=== PATIENT | male | born 1955 | race African-American/Black ===

== ENCOUNTER 2018-08-20 06:15 | Emergency (ER) | payer OTHER ==
[~2018-08-20] VITALS: Ht 170.2 cm; Wt 81.6 kg
[2018-08-20 06:24] VITALS: BP 175/120
--- NOTE | 2018-08-20 06:24 | NUR ---
TO BED # 11 AMBULATORY.
--- NOTE | 2018-08-20 06:44 | NUR ---
63/M CAME IN ED, C/O 06/23 LOWER ABD PAIN, X2 DAYS. PT STATED PAIN IS DUE TO HIS RADIATION THERAPY FOR PROSTATE CA. PT REPORTS N/V/D. LBM TODAY. LUNG SOUNDS CLEAR BL. BS ACTIVE X4, ABD FIRM ROUND TENDER TO LOWER QUADRANTS. AOX4, AMBULATORY, RR EVEN AND UNLABORED, MODERATELY IN DISTRESS OF PAIN. HX PROSTATE CA (RADIATION 5 DAYS/WEEK, "CHEMO SHOTS" EVERY 2 MO), HTN, ASTHMA, GERD
--- NOTE | 2018-08-20 07:14 | NUR ---
PT TAKEN TO CT SCAN BY CONRAD
--- NOTE | 2018-08-20 07:15 | NUR ---
IV STARTED ON L AC 20G, LABS DRAWN AND SENT TO LAB
--- NOTE | 2018-08-20 07:20 | NUR ---
Pt report given to WINDY JOSE. Transfer of care at this time.
[2018-08-20 07:23] LABS: BASOPHILS % (AUTO) 0.9 % (0.0-2.0); EOSINOPHILS # (AUTO) 0.2 K/uL (0-0.4); EOSINOPHILS % (AUTO) 6.9 % (0.0-4.0); HEMATOCRIT 38.2 % (36-52); HEMOGLOBIN 12.7 g/dL (12.0-18.0); LYMPHOCYTES # (AUTO) 0.9 K/uL (2.0-11.5); LYMPHOCYTES % (AUTO) 25.6 % (20.5-51.1); MEAN CORPUSCULAR HEMOGLOBIN 30 pg (27-31); MEAN CORPUSCULAR HGB CONC 33 g/dL (33-37); MEAN CORPUSCULAR VOLUME 89.3 fL (80-94); MONOCYTES # (AUTO) 0.5 K/uL (0.8-1.0); MONOCYTES % (AUTO) 14.9 % (1.7-9.3); NEUTROPHILS # (AUTO) 1.8 K/uL (1.8-7.7); NEUTROPHILS % (AUTO) 51.7 % (42.2-75.2); PLATELET COUNT (AUTO) 257 K/uL (140-450); RED BLOOD CELL COUNT(AUTO) 4.28 MIL/uL (4.20-6.10); RED CELL DISTRIBUTION WIDTH 13.6 % (11.6-13.7); WHITE BLOOD COUNT (AUTO) 3.5 K/uL (4.8-10.8)
[2018-08-20 07:24] LABS: APPEARANCE,URINE CLEAR (CLEAR); COLOR,URINE YELLOW (YELLOW)
[2018-08-20 07:25] LABS: BILIRUBIN,URINE NEGATIVE (NEGATIVE); BLOOD, URINE 3+ (NEGATIVE); LEUKOCYTE ESTERASE ,URINE NEGATIVE (NEGATIVE); NITRITE, URINE NEGATIVE (NEGATIVE); PH,URINE 6.5 (5.0-9.0); UGLUCOSE NEGATIVE (NEGATIVE)
[2018-08-20] MEDS ORDERED: NACL 0.9% 1,000 ML IV ONE (07:35)
[2018-08-20] MEDS ORDERED: MORPHINE SULFATE 4 MG/ML SYR IVP ONE ×2 (07:35→08:15)
[2018-08-20] MEDS ORDERED: ONDANSETRON 4 MG/2 ML VIAL IVP ONE (07:35)
[2018-08-20 07:36] LABS: ANION GAP 11.4 (8-16); CREATININE 1.1 mg/dL (0.7-1.3); POTASSIUM 3.4 mmol/L (3.5-5.1)
--- NOTE | 2018-08-20 07:39 | NUR ---
PATIENT AMBULATED TO BATHROOM. DAUGHTER AT BEDSIDE. SPOKE WITH HER REGARDING PAIN MANAGEMENT.
[2018-08-20 07:42] LABS: TOTAL BILIRUBIN 0.5 mg/dL (0.0-1.0)
[2018-08-20 07:43] LABS: RBC,URINE 11-20 (MOD) /HPF (0-5); WBC,URINE 0-5 (RARE) /HPF (0-5)
--- NOTE | 2018-08-20 08:00 | NUR ---
PATIENT STATES NO RELIEF AFTER MEDICATIONS GIVEN ORDERED. PATIENT RESTLESS AND CRYING OUTIN PAIN. DR GUEVARA MADE AWARE. STATED HE WOULD SEE PATIENT.
[2018-08-20] MEDS ORDERED: PROMETHAZINE 25 MG/ML VIAL IVP ONE (08:15)
--- NOTE | 2018-08-20 08:52 | NUR ---
SPOKE WITH PATIENTS MOTHER REGARDING A RIDE FOR THE PATIENT. SHE STATED SHE WOULD LEAVE NOW TO COME PICK HIM UP.
--- NOTE | 2018-08-20 08:53 | NUR ---
EDUCATION PROVIDED ON CATHETER CARE AND USE OF THE LEG BAD AND NIGHT BAG. PATIENT STATED UNDERSTANDING.
--- NOTE | 2018-08-20 09:05 | NUR ---
PATIENT AND PATIENT'S MOTHER EDUCATED ON PROPER USE OF LEG BAG AND NIGHT BAG. BOTH STATED UNDERSTANDING. PATIENT RETURNED DEMONSTRATION.
--- NOTE | 2018-08-20 09:11 | NUR ---
Patient discharged with v/s stable. Written and verbal after care instructions given and explained. Patient alert, oriented and verbalized understanding of instructions. Ambulatory with steady gait. All questions addressed prior to discharge. ID band removed. Patient advised to follow up with PMD. Rx of NORCO, PHENERGAN, COLACE given. Patient educated on indication of medication including possible reaction and side effects. Opportunity to ask questions provided and answered.
[2018-08-20 09:13] VITALS: BP 135/87
== END 2018-08-20 09:11 | disposition home or self-care (01) ==
LOC: MED 06:15
DX: R10.32 Left lower quadrant pain (principal); K59.00 Constipation, unspecified; R33.9 Retention of urine, unspecified; R11.2 Nausea with vomiting, unspecified; K21.9 Gastro-esophageal reflux disease without esophagitis; I10 Essential (primary) hypertension; J45.909 Unspecified asthma, uncomplicated; Z88.0 Allergy status to penicillin; Z85.46 Personal history of malignant neoplasm of prostate
CPT/HCPCS: 36415; 51702; 74176; 80053; 81001; 83690; 85025; 96361; 96374; 96375; 96376; 99285; J2270; J2405; J2550; J7030

== ENCOUNTER 2018-08-21 19:52 | Emergency (ER) | payer OTHER ==
[~2018-08-21] VITALS: Ht 170.2 cm; Wt 81.6 kg
[2018-08-21 19:56] VITALS: BP 156/98
--- NOTE | 2018-08-21 20:00 | NUR ---
TO LOBBY A/W BED, AMBULATORY, ERMGuillermo NOTED
--- NOTE | 2018-08-21 21:00 | NUR ---
Reassessed. No new complaints or changes.
--- NOTE | 2018-08-21 21:30 | NUR ---
Patient ambulated to bed 4. RN evaluating patient at bedside.
--- NOTE | 2018-08-21 21:37 | NUR ---
PT PRESENTS TO ED WITH C/O PAIN IN PENIS S/P CATHETER INSERTION X 1 DAY. PT REPORTS PAIN UPON URINATION. HX OF PROSTATE CANCER. PT PLACED IN BED, PENDING MD MELÉNDEZ. Addendum: 08/21/18 at 2140 by MEDRI PT PRESENTS TO ED WITH C/O PAIN IN PENIS S/P CATHETER INSERTION X 1 DAY. CATHETER PRESENT UPON ARRIVAL WITH LEG BEG. PT REPORTS PAIN UPON URINATION. HX OF PROSTATE CANCER. PT PLACED IN BED, PENDING MD MELÉNDEZ.
--- NOTE | 2018-08-21 21:49 | NUR ---
150ML URINE EMPTIED OUT OF CATHETER BAG. SENT TO LAB.
--- NOTE | 2018-08-21 22:37 | NUR ---
Dr. Johnston evaluating patient at bedside.
[2018-08-21] MEDS ORDERED: LIDOCAINE JELLY 2% 30 ML TUBE TP ONE (22:45)
--- NOTE | 2018-08-21 22:56 | NUR ---
Dr. Johnston re-evaluating patient at bedside.
--- NOTE | 2018-08-21 23:00 | NUR ---
GRIDER CATH REMOVED PER ER MD MCMILLAN ORDER. PT TOLERATED PROCEDURE WELL.
--- NOTE | 2018-08-21 23:58 | NUR ---
PT URINATED 100ML CLEAR YELLOW URINE.
[2018-08-22 00:03] VITALS: BP 149/99
--- NOTE | 2018-08-22 00:07 | NUR ---
Patient discharged with v/s stable. Written and verbal after care instructions given and explained. Patient alert, oriented and verbalized understanding of instructions. Ambulatory with steady gait. All questions addressed prior to discharge. ID band removed. Patient advised to follow up with PMD. Rx of PYRIDIUM given. Patient educated on indication of medication including possible reaction and side effects. Opportunity to ask questions provided and answered.
== END 2018-08-22 00:07 | disposition home or self-care (01) ==
LOC: MED 19:52
DX: T83.098A Other mechanical complication of other urinary catheter, initial encounter (principal); C61 Malignant neoplasm of prostate; J45.909 Unspecified asthma, uncomplicated; K21.9 Gastro-esophageal reflux disease without esophagitis; I10 Essential (primary) hypertension; Z92.21 Personal history of antineoplastic chemotherapy; Z92.3 Personal history of irradiation; Z88.0 Allergy status to penicillin
CPT/HCPCS: 81002; 99284

== ENCOUNTER 2018-09-07 04:43 | Emergency (ER) | payer OTHER ==
[~2018-09-07] VITALS: Ht 170.2 cm; Wt 81.6 kg
[2018-09-07 04:47] VITALS: BP 169/134
--- NOTE | 2018-09-07 04:56 | NUR ---
ER MD DR VELASCO AT BEDSIDE
[2018-09-07] MEDS ORDERED: ONDANSETRON 4 MG/2 ML VIAL IVP ONE (05:00)
[2018-09-07] MEDS ORDERED: NACL 0.9% 1,000 ML IV ONE (05:00)
[2018-09-07] MEDS ORDERED: MORPHINE SULFATE 4 MG/ML SYR IVP ONE ×3 (05:00→07:30)
[2018-09-07] MEDS ORDERED: MORPHINE SULFATE 2 MG/ML SYR ONE (05:10)
--- NOTE | 2018-09-07 05:11 | NUR ---
BLOOD SENT TO LAB, PT SENT TO CT VIA BED WITH TECH AAOX4.
--- NOTE | 2018-09-07 05:16 | NUR ---
BIB SELF FOR ABD PAIN, N/V. PT HAS FACIAL GRIMACING, PT IS SITTING ON SIDE OF BED HOLDING STOMACH, PT STATES HE HAS HAD SEVERE LOWER ABD PAIN STARTING FOR 1 WEEK AND WORSENING TODAY. PT IS NAUSEOUS , NO VOMITING NOTED UPON ARRIVAL TO ER. PT HAS ACTIVE PROSTATE CANCER THAT HE IS RECEIVING CHEMO FOR 5X WEEK PER PT. ABS IS ROUND, SOFT, TENDER TO LOWER QUADRANTS, ACTIVE BS X4. RR LABORED, SHALLOW, BL BS CLEAR THROUGOUT.
--- NOTE | 2018-09-07 05:29 | NUR ---
PT BACK FROM CT
[2018-09-07 05:31] LABS: BASOPHILS % (AUTO) 0.4 % (0.0-2.0); EOSINOPHILS # (AUTO) 0.3 K/uL (0-0.4); EOSINOPHILS % (AUTO) 5.2 % (0.0-4.0); HEMATOCRIT 41.7 % (36-52); HEMOGLOBIN 13.9 g/dL (12.0-18.0); LYMPHOCYTES # (AUTO) 1.3 K/uL (2.0-11.5); LYMPHOCYTES % (AUTO) 24.3 % (20.5-51.1); MEAN CORPUSCULAR HEMOGLOBIN 30 pg (27-31); MEAN CORPUSCULAR HGB CONC 33 g/dL (33-37); MEAN CORPUSCULAR VOLUME 89.1 fL (80-94); MONOCYTES # (AUTO) 0.8 K/uL (0.8-1.0); MONOCYTES % (AUTO) 15.2 % (1.7-9.3); NEUTROPHILS # (AUTO) 2.9 K/uL (1.8-7.7); NEUTROPHILS % (AUTO) 54.9 % (42.2-75.2); PLATELET COUNT (AUTO) 264 K/uL (140-450); RED BLOOD CELL COUNT(AUTO) 4.68 MIL/uL (4.20-6.10); RED CELL DISTRIBUTION WIDTH 13.8 % (11.6-13.7); WHITE BLOOD COUNT (AUTO) 5.3 K/uL (4.8-10.8)
--- NOTE | 2018-09-07 05:40 | NUR ---
EKG PERFORMED AT BEDSIDE. PT COVERED IN GOWN DURING PROCEDURE
[2018-09-07] MEDS ORDERED: METOCLOPRAMIDE 10 MG/2 ML INJ VIAL IVP ONE (05:45)
--- NOTE | 2018-09-07 05:45 | NUR ---
PT LAYING IN BED, IN DISTRESS, FACIAL GRIMACING, PT CONTINUES TO HAVE ABD PAIN, ER MD MADE AWARE.
[2018-09-07 05:46] LABS: ANION GAP 14.8 (8-16); CARBON DIOXIDE 23.9 mmol/L (21-32); CREATININE 1.4 mg/dL (0.7-1.3); POTASSIUM 3.7 mmol/L (3.5-5.1)
--- NOTE | 2018-09-07 06:00 | NUR ---
PT LAYING IN BED, NO RESPIRATORY DISTRESS NOTED AT THIS TIME, RR EVEN AND UNLABORED
[2018-09-07 06:09] LABS: ALBUMIN 4.3 g/dL (3.4-5.0); TOTAL BILIRUBIN 0.5 mg/dL (0.0-1.0)
[2018-09-07] MEDS ORDERED: MORPHINE SULFATE 4 MG/ML SYR ONE ×2 (06:10→07:42)
--- NOTE | 2018-09-07 06:12 | NUR ---
PT LAYING IN BED, COMFORT NEEDS MET AT THIS TIME, PT RESTING , AROUSABLE TO NAME.
[2018-09-07] MEDS ORDERED: cloNIDine 0.1 MG TAB PO ONE ×2 (06:25→07:05)
[2018-09-07 06:52] LABS: BARBITURATE, URINE NEG. ng/ml (NEG <=200); BENZODIAZEPINE, URINE NEG. ng/mL (NEG <=200); CANNABINOID, URINE NEG. ng/mL (NEG <=50); COCAINE, URINE NEG. ng/mL (NEG <=300); OPIATE, URINE POS. ng/mL (NEG <=2000); PHENCYCLIDINE SCREEN,URINE NEG. ng/mL (NEG <=25)
[2018-09-07 06:57] LABS: BILIRUBIN,URINE NEGATIVE (NEGATIVE); BLOOD, URINE LARGE (NEGATIVE); COLOR,URINE YELLOW (YELLOW); LEUKOCYTE ESTERASE ,URINE NEGATIVE (NEGATIVE); NITRITE, URINE NEGATIVE (NEGATIVE); UGLUCOSE NEGATIVE (NEGATIVE)
[2018-09-07 06:58] LABS: APPEARANCE,URINE SLIGHTLY HAZY (CLEAR)
[2018-09-07 07:03] LABS: RBC,URINE 3-10 (FEW) /HPF (0-5); WBC,URINE 0-5 (RARE) /HPF (0-5)
[2018-09-07] MEDS ORDERED: hydrALAZINE 20 MG/ML VIAL IVP ONE (07:05)
[2018-09-07] MEDS ORDERED: hydrALAZINE 20 MG/ML VIAL IM ONE (07:05)
--- NOTE | 2018-09-07 07:05 | NUR ---
B/P 222/153, ER MADE AWARE, WILL CONTINUE W/ ORDERS
--- NOTE | 2018-09-07 07:16 | NUR ---
REPORT GIVEN TO WINDY STEWARD.
--- NOTE | 2018-09-07 08:16 | NUR ---
sodium chloride 1000ml iv end time 0816am 09/07/18
[2018-09-07 08:17] VITALS: BP 178/119
--- NOTE | 2018-09-07 08:17 | NUR ---
Patient discharged with v/s stable. Written and verbal after care instructions given and explained. Patient alert, oriented and verbalized understanding of instructions. Wheel Chair Assisted with to home. All questions addressed prior to discharge. ID band removed. Patient advised to follow up with PMD. Rx of YESSICA KENYON ANSGuillermo MOTRIN given. Patient educated on indication of medication including possible reaction and side effects. Opportunity to ask questions provided and answered.
== END 2018-09-07 08:17 | disposition home or self-care (01) ==
LOC: MED 04:43
DX: N17.9 Acute kidney failure, unspecified (principal); K56.7 Ileus, unspecified; E86.0 Dehydration; J45.909 Unspecified asthma, uncomplicated; K21.9 Gastro-esophageal reflux disease without esophagitis; I10 Essential (primary) hypertension; Z88.0 Allergy status to penicillin; Z85.46 Personal history of malignant neoplasm of prostate
CPT/HCPCS: 36415; 71045; 74176; 80053; 80305; 81001; 83605; 83880; 84484; 85025; 87040; 87086; 93005; 96361; 96374; 96375; 96376; 99284; J0360; J2270; J2405; J2765; J7030; Q0092

== ENCOUNTER 2018-09-09 07:00 | Inpatient (IN) | payer OTHER ==
[~2018-09-09] VITALS: Ht 167.6 cm; Wt 81.6 kg
[2018-09-09 07:05] VITALS: BP 206/145
[2018-09-09] MEDS ORDERED: NACL 0.9% 1,000 ML IV SCH (07:36)
[2018-09-09] MEDS ORDERED: DICYCLOMINE 20 MG/2 ML VIAL IM ONE (07:40)
[2018-09-09] MEDS ORDERED: PANTOPRAZOLE 40 MG INJ VIAL IVP ONE (07:40)
[2018-09-09] MEDS ORDERED: ONDANSETRON 4 MG/2 ML VIAL IVP ONE (07:40)
[2018-09-09 08:13] LABS: BASOPHILS % (AUTO) 0.3 % (0.0-2.0); EOSINOPHILS # (AUTO) 0.2 K/uL (0-0.4); EOSINOPHILS % (AUTO) 4.9 % (0.0-4.0); HEMATOCRIT 39.1 % (36-52); HEMOGLOBIN 13.3 g/dL (12.0-18.0); LYMPHOCYTES # (AUTO) 0.9 K/uL (2.0-11.5); LYMPHOCYTES % (AUTO) 20.6 % (20.5-51.1); MEAN CORPUSCULAR HEMOGLOBIN 30 pg (27-31); MEAN CORPUSCULAR HGB CONC 34 g/dL (33-37); MEAN CORPUSCULAR VOLUME 88.7 fL (80-94); MONOCYTES # (AUTO) 0.6 K/uL (0.8-1.0); MONOCYTES % (AUTO) 13.9 % (1.7-9.3); NEUTROPHILS # (AUTO) 2.5 K/uL (1.8-7.7); NEUTROPHILS % (AUTO) 60.3 % (42.2-75.2); PLATELET COUNT (AUTO) 258 K/uL (140-450); RED BLOOD CELL COUNT(AUTO) 4.41 MIL/uL (4.20-6.10); RED CELL DISTRIBUTION WIDTH 13.6 % (11.6-13.7); WHITE BLOOD COUNT (AUTO) 4.1 K/uL (4.8-10.8)
[2018-09-09 08:35] LABS: ANION GAP 11.8 (8-16); CARBON DIOXIDE 26.7 mmol/L (21-32); CREATININE 1.3 mg/dL (0.7-1.3); POTASSIUM 3.5 mmol/L (3.5-5.1); TOTAL BILIRUBIN 0.5 mg/dL (0.0-1.0)
[2018-09-09] MEDS ORDERED: MORPHINE SULFATE 2 MG/ML SYR IVP ONE (08:55)
[2018-09-09] MEDS ORDERED: METOCLOPRAMIDE 10 MG/2 ML INJ VIAL IVP ONE (08:55)
[2018-09-09] MEDS ORDERED: TAMS0.4C96 PO (09:06)
[2018-09-09] MEDS ORDERED: GABA300C PO (09:06)
[2018-09-09] MEDS ORDERED: CLON0.1T42 PO (09:06)
[2018-09-09] MEDS ORDERED: METR500T1 PO (09:06)
[2018-09-09] MEDS ORDERED: IMI25 PO (09:06)
[2018-09-09] MEDS ORDERED: IBUP-2213 PO (09:06)
[2018-09-09] MEDS ORDERED: LORA10TA19 PO (09:06)
[2018-09-09] MEDS ORDERED: TRAM50TA1 PO (09:06)
[2018-09-09] MEDS ORDERED: OMEP20TC12 PO (09:06)
[2018-09-09] MEDS ORDERED: CIPR250T6 PO (09:06)
[2018-09-09] MEDS ORDERED: SIMV40TA1 PO (09:06)
[2018-09-09] MEDS ORDERED: CARV25TA PO (09:06)
[2018-09-09] MEDS ORDERED: ALBU0.0912 IH (09:06)
[2018-09-09] MEDS ORDERED: BENA40TA PO (09:06)
[2018-09-09 09:12] LABS: APPEARANCE,URINE CLEAR (CLEAR); BILIRUBIN,URINE NEGATIVE (NEGATIVE); BLOOD, URINE LARGE (NEGATIVE); COLOR,URINE YELLOW (YELLOW); LEUKOCYTE ESTERASE ,URINE NEGATIVE (NEGATIVE); NITRITE, URINE NEGATIVE (NEGATIVE); PH,URINE 5.5 (5.0-9.0); UGLUCOSE NEGATIVE (NEGATIVE)
[2018-09-09 09:21] LABS: RBC,URINE 11-20 (MOD) /HPF (0-5); WBC,URINE 0-5 (RARE) /HPF (0-5)
[2018-09-09] MEDS ORDERED: ENALAPRILAT 2.5 MG/2 ML VIAL IVP ONE (09:30)
[2018-09-09] MEDS ORDERED: DEXT 5% / NACL 0.45% 1,000 ML IV SCH (09:34)
[2018-09-09] MEDS ORDERED: MORPHINE SULFATE 4 MG/ML SYR IVP PRN (09:35)
[2018-09-09] MEDS ORDERED: ENALAPRILAT 2.5 MG/2 ML VIAL IVP PRN (09:35)
[2018-09-09] MEDS ORDERED: MORPHINE SULFATE 2 MG/ML SYR IVP PRN (09:35)
[2018-09-09] MEDS ORDERED: ALBUTEROL 0.083% 2.5 MG/3 ML NEBU IH PRN (09:35)
[2018-09-09] MEDS ORDERED: ONDANSETRON 4 MG/2 ML VIAL IVP PRN (09:35)
[2018-09-09] MEDS ORDERED: ACETAMINOPHEN 325 MG TAB PO PRN (09:35)
[2018-09-09] MEDS ORDERED: MORPHINE SULFATE 4 MG/ML SYR IVP ONE (09:45)
[2018-09-09 10:05] VITALS: BP 195/116
[2018-09-09] MEDS: LORazepam 2 MG/ML VIAL IVP PRN ×2 (10:56→17:09)
[2018-09-09] MEDS ORDERED: HYDROcodone/APAP 5/325 MG 1 TAB TAB PO PRN (13:50)
[2018-09-09] MEDS ORDERED: cloNIDine 0.1 MG TAB PO ONE (13:50)
[2018-09-09] MEDS ORDERED: cloNIDine 0.1 MG TAB PO PRN (13:55)
[2018-09-09 16:00] VITALS: BP 145/94
[2018-09-09 20:00] VITALS: BP 148/97
[2018-09-09] MEDS ORDERED: CARVEDILOL 12.5 MG TAB PO SCH (21:00)
[2018-09-10] MEDS ORDERED: TAMSULOSIN 0.4 MG CAP PO SCH (08:30)
[2018-09-10] MEDS ORDERED: ENOXAPARIN 30 MG/0.3 ML SYR SUBQ SCH (09:00)
[2018-09-10] MEDS ORDERED: PANTOPRAZOLE 40 MG INJ VIAL IVP SCH (09:00)
[2018-09-10] MEDS ORDERED: BENAZEPRIL 20 MG TAB PO SCH (09:00)
[2018-09-16] MEDS ORDERED: cloNIDine-TTS1 0.1 MG/24 HR 1 EA PATCH TD SCH (09:00)
== END 2018-09-09 21:05 | disposition left against medical advice (07) | DRG 247 ==
LOC: MED 07:00 → MTU 09:39
PROVIDERS: ADMIT Internal Medicine; ATTEND Internal Medicine
DX: K56.7 Ileus, unspecified (principal); C61 Malignant neoplasm of prostate; K52.9 Noninfective gastroenteritis and colitis, unspecified; I10 Essential (primary) hypertension; K21.9 Gastro-esophageal reflux disease without esophagitis; J45.909 Unspecified asthma, uncomplicated; Z53.21 Procedure and treatment not carried out due to patient leaving prior to being seen by health care provider; Z88.0 Allergy status to penicillin; Z79.1 Long term (current) use of non-steroidal anti-inflammatories (NSAID); Z79.2 Long term (current) use of antibiotics; Z79.51 Long term (current) use of inhaled steroids; Z79.899 Other long term (current) drug therapy
CPT/HCPCS: 36415; 74021; 80053; 81001; 83690; 85025; 87081; 94640; C9113; J0500; J2060; J2270; J2405; J2765; J3490; J7613; Q0092

== ENCOUNTER 2019-05-06 04:50 | Observation (INO) | payer OTHER ==
[~2019-05-06] VITALS: Ht 167.6 cm; Wt 79.4 kg
[~2019-05-06 04:50] MED LIST: ALBU0.0912 IH; BENA40TA PO; CARV25TA PO; CIPR250T6 PO; CLON0.1T42 PO; GABA300C PO; IBUP-2213 PO; IMI25 PO; LORA10TA19 PO; METR500T1 PO; OMEP20TC12 PO; SIMV40TA1 PO; TAMS0.4C96 PO; TRAM50TA1 PO
[2019-05-06 04:53] VITALS: BP 145/89
--- NOTE | 2019-05-06 04:57 | NUR ---
PT TAKEN TO ER BED 11
--- NOTE | 2019-05-06 05:02 | NUR ---
PT CAME TO ER C/O OF ABDOMINAL PAIN UNDER NAVAL SINCE LAST NIGHT. PAIN LEVEL 9/10 SHARP, CONSISTENT PAIN. PT HAS N/V/D. ABDOMEN IS DISTENDED, ROUND, AND TENDER TO TOUCH. BOWEL SOUNDS ACTIVE X 4 QUADRANTS. PT STATES HE DRANK 1/2 BEER TODAY. MED HX: ASTHMA. SAFETY MEASURES IN PLACE, BEDRAILS UP X2, BED IN LOWEST POSITION. ERMD AT BEDSIDE.
--- NOTE | 2019-05-06 05:04 | NUR ---
Dr. Hernandez examining patient.
[2019-05-06] MEDS ORDERED: NACL 0.9% 500 ML IV ONE (05:05)
[2019-05-06] MEDS ORDERED: KETOROLAC 30 MG/ML VIAL IVP ONE (05:05)
[2019-05-06] MEDS ORDERED: ONDANSETRON 4 MG/2 ML VIAL IVP ONE (05:05)
--- NOTE | 2019-05-06 05:35 | NUR ---
PT STILL VOMITING. ERMD NOTIFIED.
--- NOTE | 2019-05-06 05:52 | NUR ---
PT TAKEN TO CT
[2019-05-06 05:55] LABS: BASOPHILS # (AUTO) 0.1 K/uL (0.00-0.22); EOSINOPHILS # (AUTO) 0.1 K/uL (0-0.4); EOSINOPHILS % (AUTO) 1.6 % (0.0-4.0); HEMATOCRIT 37.8 % (36-52); HEMOGLOBIN 12.6 g/dL (12.0-18.0); LYMPHOCYTES # (AUTO) 1.1 K/uL (2.0-11.5); LYMPHOCYTES % (AUTO) 20.6 % (20.5-51.1); MEAN CORPUSCULAR HEMOGLOBIN 30 pg (27-31); MEAN CORPUSCULAR HGB CONC 33 g/dL (33-37); MEAN CORPUSCULAR VOLUME 90.9 fL (80-94); MONOCYTES # (AUTO) 0.5 K/uL (0.8-1.0); MONOCYTES % (AUTO) 9.2 % (1.7-9.3); NEUTROPHILS # (AUTO) 3.5 K/uL (1.8-7.7); NEUTROPHILS % (AUTO) 67.6 % (42.2-75.2); PLATELET COUNT (AUTO) 215 K/uL (140-450); RED BLOOD CELL COUNT(AUTO) 4.16 MIL/uL (4.20-6.10); RED CELL DISTRIBUTION WIDTH 13.9 % (11.6-13.7); WHITE BLOOD COUNT (AUTO) 5.2 K/uL (4.8-10.8)
--- NOTE | 2019-05-06 06:05 | NUR ---
PT RETURN FROM CT
[2019-05-06 06:10] LABS: ANION GAP 9.8 (8-16); CARBON DIOXIDE 30.9 mmol/L (21-32); CREATININE 1.6 mg/dL (0.7-1.3); POTASSIUM 3.7 mmol/L (3.5-5.1)
[2019-05-06 06:13] LABS: ACETAMINOPHEN < 0.5 ug/ml (10-30); SALICYLATE < 2.8 mg/dL (2.8-20.0)
[2019-05-06 06:26] LABS: ALBUMIN 3.9 g/dL (3.4-5.0); TOTAL BILIRUBIN 0.4 mg/dL (0.0-1.0)
--- NOTE | 2019-05-06 06:28 | NUR ---
PT RESTING IN BED WITH EYES OPEN. COMFORT NEEDS MET AT THIS TIME. WILL CONTINUE TO MONITOR.
[2019-05-06] MEDS ORDERED: MORPHINE SULFATE 2 MG/ML SYR IVP ONE (06:45)
[2019-05-06 06:56] LABS: BARBITURATE, URINE NEG. ng/ml (NEG <=200); BENZODIAZEPINE, URINE NEG. ng/mL (NEG <=200); CANNABINOID, URINE NEG. ng/mL (NEG <=50); COCAINE, URINE POS. ng/mL (NEG <=300); OPIATE, URINE NEG. ng/mL (NEG <=2000); PHENCYCLIDINE SCREEN,URINE NEG. ng/mL (NEG <=25)
[2019-05-06] MEDS ORDERED: cloNIDine 0.1 MG TAB PO ONE (07:00)
--- NOTE | 2019-05-06 07:19 | NUR ---
Konrad horne in [facility] - 05/06/19 at 0719 by ROB GAVE REPORT TO WINDY PERALES
--- NOTE | 2019-05-06 07:20 | NUR ---
RECEIVED REPORT FROM WINDY MAYES
--- NOTE | 2019-05-06 07:20 | NUR ---
GAVE REPORT TO WINDY PERALES
--- NOTE | 2019-05-06 07:39 | NUR ---
PT BP IS 234/138 AT THIS TIME. CLONIDINE 0.1MG GIVEN 0704 AM. WILL REASSESS IN 20 MIN.
--- NOTE | 2019-05-06 07:42 | NUR ---
Pt is anxious and is unable to remain still. Pt states it is because he is still in pain. Dr. Hay aware and will order medication for pain relief.
--- NOTE | 2019-05-06 07:52 | NUR ---
BP STILL 231/136, DR. ROWE AWARE.
[2019-05-06] MEDS ORDERED: hydrALAZINE 20 MG/ML VIAL IVP ONE (08:00)
[2019-05-06] MEDS ORDERED: ENALAPRILAT 2.5 MG/2 ML VIAL IVP ONE (08:00)
[2019-05-06] MEDS ORDERED: MORPHINE SULFATE 4 MG/ML SYR IVP ONE (08:20)
[2019-05-06] MEDS ORDERED: cloNIDine 0.1 MG TAB PO PRN (08:40)
[2019-05-06] MEDS ORDERED: HYDROcodone/APAP 5/325 MG 1 TAB TAB PO PRN ×2 (08:40)
[2019-05-06] MEDS ORDERED: ONDANSETRON 4 MG/2 ML VIAL IVP PRN (08:40)
[2019-05-06] MEDS ORDERED: LORazepam 2 MG/ML VIAL IVP PRN (08:40)
[2019-05-06] MEDS ORDERED: ACETAMINOPHEN 325 MG TAB PO PRN (08:40)
--- NOTE | 2019-05-06 08:48 | NUR ---
BP down to 136/103, pain level 4/10 at this time. Pt still appears anxious and is unable to remain still. Provided pt education on relaxation techniques.
[2019-05-06] MEDS ORDERED: BENAZEPRIL 20 MG TAB PO SCH (09:00)
[2019-05-06] MEDS ORDERED: CARVEDILOL 12.5 MG TAB PO SCH (09:00)
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
--- NOTE | 2019-05-06 09:15 | NUR ---
Patient will be admitted to care of dr. juan. Admited to med surg. Will go to room 125a. Belongings list completed. Report to WINDY Lamas.
[2019-05-06] MEDS: GABAPENTIN 300 MG CAP PO SCH ×2 (10:31→14:15)
--- NOTE | 2019-05-06 10:33 | NUR ---
ADMINISTERED SCHEDULED MEDS. PATIENT TOLERATED WELL
[2019-05-06] MEDS ORDERED: CLON0.2T43 PO (10:40)
[2019-05-06] MEDS ORDERED: TAMSULOSIN 0.4 MG CAP PO SCH (11:00)
[2019-05-06 13:12] VITALS: BP 197/114
--- NOTE | 2019-05-06 13:24 | NUR ---
PATIENT SLEEPING, ON ROOM AIR, NO DISTRESS NOTED. NO COMPLAINTS AT THIS TIME
[2019-05-06] MEDS ORDERED: PNEUMOCOCCAL VACCINE 23 MCG/0.5 ML VIAL IMVAC SCH (13:40)
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
[2019-05-06] MEDS ORDERED: SIMVASTATIN 40 MG TAB PO SCH (21:00)
[2019-05-07] MEDS ORDERED: TAMSULOSIN 0.4 MG CAP PO SCH (08:30)
== END 2019-05-06 15:40 | disposition home or self-care (01) ==
LOC: MED 04:50 → MMU 08:49
PROVIDERS: ADMIT Internal Medicine Pulmonary Disease; ATTEND Internal Medicine Pulmonary Disease
DX: I16.0 Hypertensive urgency (principal); I12.9 Hypertensive chronic kidney disease with stage 1 through stage 4 chronic kidney disease, or unspecified chronic kidney disease; N18.3 Chronic kidney disease, stage 3 (moderate); F14.99 Cocaine use, unspecified with unspecified cocaine-induced disorder; A08.4 Viral intestinal infection, unspecified; Z23 Encounter for immunization
CPT/HCPCS: 36415; 71045; 74176; 80053; 80305; 84484; 85025; 87081; 90471; 90732; 96374; 96375; 96376; 99285; G0378; G0480; G0482; J0360; J1885; J2270; J2405; J3490; J7030; Q0092; 96361

== ENCOUNTER 2020-04-01 03:05 | Emergency (ER) | payer OTHER ==
[~2020-04-01] VITALS: Ht 170.2 cm; Wt 81.6 kg
[~2020-04-01 03:05] MED LIST changes: -ALBU0.0912 IH; -CIPR250T6 PO; +CLON0.2T43 PO; -METR500T1 PO
[2020-04-01 03:14] VITALS: BP 184/124
--- NOTE | 2020-04-01 03:21 | NUR ---
PT AMBULATED TO BED 11 WITH STEADY GAIT
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
--- NOTE | 2020-04-01 03:56 | NUR ---
Dr. Garcia examining patient.
[2020-04-01] MEDS ORDERED: ONDANSETRON 4 MG/2 ML VIAL IVP STA (03:58)
[2020-04-01] MEDS ORDERED: MORPHINE SULFATE 4 MG/ML SYR IVP STA ×2 (03:58→04:24)
--- NOTE | 2020-04-01 04:11 | NUR ---
Konrad horne in [facility] - 04/01/20 at 0427 by MEGAN PT TAKEN TO CT
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
--- NOTE | 2020-04-01 04:13 | NUR ---
PT TO CT VIA WHEELCHAIR
--- NOTE | 2020-04-01 04:22 | NUR ---
PT REURNED FROM CT
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
--- NOTE | 2020-04-01 05:39 | NUR ---
Dr. Garcia re-evaluating patient.
[2020-04-01] MEDS ORDERED: CLINDAMYCIN 150 MG CAP PO STA (05:51)
[2020-04-01] MEDS ORDERED: CLINDAMYCIN 150 MG CAP ONE (06:01)
--- NOTE | 2020-04-01 06:02 | NUR ---
CLINDAMYCIN 300MG PO ORDERED PER MD NAIDU, WAS NOT SHOWING ON EMAR. PULLED OUT OF PYXIS USING STOCKED MEDS. 2 - 150MG CAPSULES
[2020-04-01 06:21] VITALS: BP 182/131
--- NOTE | 2020-04-01 06:24 | NUR ---
Patient discharged with v/s stable. Written and verbal after care instructions given and explained. Patient alert, oriented and verbalized understanding of instructions. Ambulatory with steady gait. All questions addressed prior to discharge. ID band removed. Patient advised to follow up with PMD. Rx of CLINDAMYCIN, NORCO, AND CHLORHEXIDATE RINSE given. Patient educated on indication of medication including possible reaction and side effects. Opportunity to ask questions provided and answered.
--- NOTE | 2020-04-01 06:25 | NUR ---
NADR TO CLINDAMYCIN
== END 2020-04-01 06:24 | disposition home or self-care (01) ==
LOC: MED 03:05
DX: S01.81XA Laceration without foreign body of other part of head, initial encounter (principal); I10 Essential (primary) hypertension; J45.909 Unspecified asthma, uncomplicated; K21.9 Gastro-esophageal reflux disease without esophagitis; Z79.899 Other long term (current) drug therapy; W22.8XXA Striking against or struck by other objects, initial encounter; Y93.89 Activity, other specified; Y92.89 Other specified places as the place of occurrence of the external cause; Y99.8 Other external cause status
CPT/HCPCS: 70450; 70486; 96374; 96375; 99285; J2270; J2405